=== PATIENT | female | born 1985 | race Caucasian/White ===

== ENCOUNTER 2016-11-14 18:05 | Emergency (ER) | payer OTHER ==
[2016-11-14 19:14] LABS: BASO % 0.4 % (0.0-1.0); EOS # 0.1 K/mm3 (0.0-0.50); EOS % 0.8 % (0.0-3.0); LARGE UNSTAINED CELL # 0.2 K/mm3 (0.0-0.4); LARGE UNSTAINED CELL % 1.2 % (0.0-4.0); LYMPH # 2.5 K/mm3 (1.5-4.5); LYMPH % 18.1 % (24.0-44.0); MEAN CORPUSCULAR HEMOGLOBIN 28.2 pg (27.0-33.0); MEAN CORPUSCULAR HGB CONC 33.5 g/dl (32.0-36.5); MEAN CORPUSCULAR VOLUME 84.2 fl (80.0-96.0); MONO # 0.4 K/mm3 (0.0-0.8); MONO % 3.2 % (0.0-5.0); NEUTROPHILS # 10.4 K/mm3 (1.8-7.7); NEUTROPHILS % 76.3 % (36.0-66.0); PLATELET COUNT, AUTOMATED 245 k/mm3 (150-450); RED CELL DISTRIBUTION WIDTH 12.8 % (11.5-14.5); WHITE BLOOD COUNT 13.6 K/mm3 (4.0-10.0)
[2016-11-14 19:36] LABS: ANION GAP 9 MEQ/L (8-16); BLOOD UREA NITROGEN 10 MG/DL (7-18); CALCIUM LEVEL 8.7 MG/DL (8.5-10.1); CARBON DIOXIDE LEVEL 27 MEQ/L (21-32); CHLORIDE LEVEL 104 MEQ/L (98-107); CREATININE FOR GFR 0.66 MG/DL (0.55-1.02); GLOMERULAR FILTRATION RATE > 60.0 (>60); GLUCOSE, FASTING 154 MG/DL (70-105); POTASSIUM SERUM 3.7 MEQ/L (3.5-5.1); SODIUM LEVEL 140 MEQ/L (136-145)
--- NOTE | 2016-11-14 20:17 | EDDOCDS ---
Nurse's Notes [facility] Name: Rosa Alicea Age: 30 yrs Sex: Female : 1985 Arrival Date: 11/14/2016 Time: 18:05 Bed 17 Private MD: Yaakov Hanna J Diagnosis: Acute upper respiratory infection, unspecified-viral Presentation: 11/14 18:15 Presenting complaint: Patient states: have had a couple of episodes of SOB in past [facility] couple of days, since this morning around ten has been constant. Have been getting over cold/flu symptoms so thought it was that but it is getting worse. Adult Sepsis Screening: The patient does not have new or worsening altered mentation. Patient's respiratory rate is less than 22. Systolic blood pressure is greater than 100. Patient has a qSOFA score of 0- Negative Sepsis Screen. Suicide/Homicide risk assessment- the patient denies having any suicidal and/or homicidal ideations and does not present with any other emotional, behavioral or mental health complaints. Status: Patient is not a service observer chief or dependent. Transition of care: patient was not received from another setting of care. 18:15 Acuity: IRON Level 3 [facility] 18:15 Method Of Arrival: Walkin/Carried/Asstd [facility] Triage Assessment: 18:20 General: Appears in no apparent distress, comfortable, Behavior is appropriate for age, [facility] cooperative. Pain: Denies pain. HIV screening NA for this visit Offered previously. Respiratory: Onset: The symptoms/episode began/occurred yesterday, Airway is patent Respiratory effort is even, labored, Respiratory pattern is regular, symmetrical, Breath sounds are clear bilaterally. Derm: Skin is pink, warm & dry. TEST RIDER: 18:20 LMP 10/21/2016 [facility] Historical: - Allergies: no known allergies; - Home Meds: 1. Vitamin Oral tab 1 tab once daily 2. Stool softener - PMHx: ADD; Depression; - PSHx: Right knee arthroscopy (2002); Oral surgery; - Social history: Smoking status: Patient states former smoker of tobacco. No barriers to communication noted. - Family history: Not pertinent. - : The pt / caregiver states he / she is not on anticoagulants. Home medication list is obtained from the patient. - Exposure Risk Screening:: None identified. Screenin:01 Screening information is obtained from the patient. Fall risk: No risks identified. ml6 Assistance ADL's: requires no assistance with activities of daily living. Abuse/DV Screen: The patient / caregiver reports he/she is: not in a situation that causes fear, pain or injury. Nutritional screening: No deficits noted. Advance Directives: Currently, there is no health care proxy. home support is adequate. Assessment: 19:01 General: Appears in no apparent distress, Behavior is appropriate for age, cooperative. ml6 Pain: Denies pain. Neurological: No deficits noted. Level of Consciousness is awake, alert, Oriented to person, place, time. Cardiovascular: Capillary refill < 3 seconds is brisk in bilateral fingers toes Heart tones S1 S2 present Edema is absent. Pulses are all present. Rhythm is regular Chest pain is denied. Respiratory: Airway is patent Respiratory effort is even, labored, Respiratory pattern is regular, symmetrical, Breath sounds are clear bilaterally. Reports shortness of breath at rest the patient has mild shortness of breath. 19:33 General: Appears in no apparent distress, Behavior is appropriate for age, cooperative. ko2 General:. Pain: Denies pain. Neurological: Level of Consciousness is awake, alert, Oriented to person, place, time. Cardiovascular: Heart tones S1 S2 present Rhythm is regular Chest pain is denied. Respiratory: Airway is patent Respiratory effort is even, labored, Respiratory pattern is regular, symmetrical, Breath sounds are clear bilaterally. Reports shortness of breath at rest. GI: Abdomen is non- distended Bowel sounds present X 4 quads. Abd is soft and non tender. Derm: Skin is normal. Musculoskeletal: Range of motion intact in all extremities. 20:14 General: Appears in no apparent distress, Behavior is appropriate for age, cooperative. ko2 Neurological: Level of Consciousness is awake, alert. Respiratory: Airway is patent Respiratory effort is even, Respiratory pattern is regular, symmetrical. Derm: Skin is normal. Vital Signs: 18:06 BP 139 / 70; Pulse 91; Resp 18 S; Temp 97.9(O); Pulse Ox 99% on R/A; Weight 63.05 kg gr2 (R); Height 5 ft. 5 in. (165.10 cm) (R); Pain 3/10; 18:52 BP 110 / 61 (auto/); ko2 18:52 Pulse 78 MON; Pulse Ox 98% ; ko2 19:22 BP 109 / 63 (auto/); ko2 19:22 Pulse 86 MON; Pulse Ox 97% ; ko2 20:15 BP 110 / 63; Pulse 84; Resp 18; Temp 97.1(T); Pulse Ox 97% ; Pain 0/10; ko2 18:06 Body Mass Index 23.13 (63.05 kg, 165.10 cm) gr2 Vitals: 18:06 Log In Time: November 14, 2016 at 18:06. gr2 ED Course: 18:06 Patient visited by Morena Zavala. gr2 18:06 Yaakov Hanna is Private Physician. gr2 18:06 Patient moved to Waiting gr2 18:07 Patient visited by Morena Zavala. gr2 18:07 Patient moved to Pre RCE gr2 18:17 Triage Initiated cjh 18:26 Patient moved to 17 rs6 18:51 Patient visited by Freya Dominguez PCA. marnie 18:51 EKG done. (by ED staff). Reviewed by Rich Reynoso MD. marnie 18:55 Vaughn Gloevr DO is Attending Physician. cs11 18:55 Patient visited by Vaughn Glover DO. cs11 18:58 Hattie Shea,RN is Primary Nurse. ko2 19:00 -Influenza A&B Rapid Antigen - Nose Sent. ml6 19:00 BMP Sent. ml6 19:00 CBC with Diff Sent. ml6 19:00 D-Dimer Quant Sent. ml6 19:01 Inserted peripheral IV: 18gauge IV in right antecubital area and blood collected. ml6 Patient tolerated the procedure well. No procedures done that require assistance. Labs drawn. (by ED staff). Sent per order to lab. 19:33 Patient visited by Hattie Shea,LUL. ko2 20:01 Yaakov Hanna is Referral Physician. cs11 20:15 The patient / caregiver is instructed regarding the plan of care and ED course. ko2 20:15 Discontinued lock intact, bleeding controlled, pressure dressing applied, No ko2 redness/swelling at site. Order Results: Lab Order: -Influenza A&B Rapid Antigen - Nose; SPEC'M 11/14/16 18:58 Test: INFLUENZA A RAPID SCR by ICA; Value: INFLUENZA A RESULTS NEGATIVE; Status: F Test: INFLUENZA A RAPID SCR by ICA; Value: Comments:; Status: F Test: INFLUENZA B RAPID SCR by ICA; Value: INFLUENZA B RESULTS NEGATIVE; Status: F Test Note: ; The Influenza test is a direct rapid immunoassay for the qualitative detection of Influenza viral antigen. Cell culture (Viral Culture) testing should be considered to confirm NEGATIVE results and to assist in detecting other viruses that can provide similar clinical symptoms. Please contact the lab within 24 hours ([phone]) if confirmatory testing is desired. Lab Order: BMP; SPEC'M 11/14/16 18:58 Test: GLUCOSE, FASTING; Value: 154; Range: 70-105; Abnormal: Above high normal; Units: MG/DL; Status: F Test: BLOOD UREA NITROGEN; Value: 10; Range: 7-18; Units: MG/DL; Status: F Test: CREATININE FOR GFR; Value: 0.66; Range: 0.55-1.02; Units: MG/DL; Status: F Test: GLOMERULAR FILTRATION RATE; Value: > 60.0; Range: >60; Status: F Test: SODIUM LEVEL; Value: 140; Range: 136-145; Units: MEQ/L; Status: F Test: POTASSIUM SERUM; Value: 3.7; Range: 3.5-5.1; Units: MEQ/L; Status: F Test: CHLORIDE LEVEL; Value: 104; Range: 98-107; Units: MEQ/L; Status: F Test: CARBON DIOXIDE LEVEL; Value: 27; Range: 21-32; Units: MEQ/L; Status: F Test: ANION GAP; Value: 9; Range: 8-16; Units: MEQ/L; Status: F Test: CALCIUM LEVEL; Value: 8.7; Range: 8.5-10.1; Units: MG/DL; Status: F Test Note: ; Units are mL/min/1.73 m2 Chronic Kidney Disease Staging per NKF: Stage I & II GFR >=60 Normal to Mildly Decreased Stage III GFR 30-59 Moderately Decreased Stage IV GFR 15-29 Severely Decreased Stage V GFR <15 Very Little GFR Left ESRD GFR <15 on GERIATRIC AIDE Lab Order: CBC with Diff; SPEC'M 11/14/16 18:58 Test: WHITE BLOOD COUNT; Value: 13.6; Range: 4.0-10.0; Abnormal: Above high normal; Units: K/mm3; Status: F Test: RED BLOOD COUNT; Value: 4.21; Range: 4.00-5.40; Units: M/mm3; Status: F Test: HEMOGLOBIN; Value: 11.9; Range: 12.0-16.0; Abnormal: Below low normal; Units: g/dl; Status: F Test: HEMATOCRIT; Value: 35.4; Range: 36.0-47.0; Abnormal: Below low normal; Units: %; Status: F Test: MEAN CORPUSCULAR VOLUME; Value: 84.2; Range: 80.0-96.0; Units: fl; Status: F Test: MEAN CORPUSCULAR HEMOGLOBIN; Value: 28.2; Range: 27.0-33.0; Units: pg; Status: F Test: MEAN CORPUSCULAR HGB CONC; Value: 33.5; Range: 32.0-36.5; Units: g/dl; Status: F Test: RED CELL DISTRIBUTION WIDTH; Value: 12.8; Range: 11.5-14.5; Units: %; Status: F Test: PLATELET COUNT, AUTOMATED; Value: 245; Range: 150-450; Units: k/mm3; Status: F Test: NEUTROPHILS %; Value: 76.3; Range: 36.0-66.0; Abnormal: Above high normal; Units: %; Status: F Test: LYMPH %; Value: 18.1; Range: 24.0-44.0; Abnormal: Below low normal; Units: %; Status: F Test: MONO %; Value: 3.2; Range: 0.0-5.0; Units: %; Status: F Test: EOS %; Value: 0.8; Range: 0.0-3.0; Units: %; Status: F Test: BASO %; Value: 0.4; Range: 0.0-1.0; Units: %; Status: F Test: LARGE UNSTAINED CELL %; Value: 1.2; Range: 0.0-4.0; Units: %; Status: F Test: NEUTROPHILS #; Value: 10.4; Range: 1.8-7.7; Abnormal: Above high normal; Units: K/mm3; Status: F Test: LYMPH #; Value: 2.5; Range: 1.5-4.5; Units: K/mm3; Status: F Test: MONO #; Value: 0.4; Range: 0.0-0.8; Units: K/mm3; Status: F Test: EOS #; Value: 0.1; Range: 0.0-0.50; Units: K/mm3; Status: F Test: BASO #; Value: 0.0; Range: 0.0-0.2; Units: K/mm3; Status: F Test: LARGE UNSTAINED CELL #; Value: 0.2; Range: 0.0-0.4; Units: K/mm3; Status: F Lab Order: D-Dimer Quant; SPEC'M 11/14/16 18:58 Test: D-DIMER QUANT; Value: < 270.0; Range: <500; Units: ng/ml; Status: F Outcome: 20:02 Discharge ordered by Provider. cs11 20:16 Discharge Assessment: Patient awake, alert and oriented x 3. No cognitive and/or ko2 functional deficits noted. Patient verbalized understanding of disposition instructions. patient administered narcotics - no. The following High Risk Discharge criteria are identified: None. Discharged to home ambulatory, with significant other. Condition: stable. Discharge instructions given to patient, Instructed on discharge instructions, follow up and referral plans. Demonstrated understanding of instructions, Pt was receptive of discharge instructions/ teaching. No special radiology studies were completed. Property sent home with patient. 20:16 Patient left the ED. ko2 Signatures: Edgar Lara, RN RN ml6 Freya Dmoinguez, CENSUS ENUMERATOR CENSUS ENUMERATOR marnie Radha Iniguez,RN RN tyesha Vaughn Glover DO DO cs11 Morena Zavala 2 Hattie Shea RN RN ko2 Rajani Clark, CENSUS ENUMERATOR CENSUS ENUMERATOR rs6 MTDD
--- NOTE | 2016-11-14 20:17 | EDDOCDS ---
Physician Documentation [facility] Name: Rosa Alicea Age: 30 yrs Sex: Female : 1985 Arrival Date: 11/14/2016 Time: 18:05 Bed 17 Private MD: Yaakov Hanna J Disposition: 11/14/16 20:02 Discharged to Home/Self Care. Impression: Acute upper respiratory infection, unspecified - viral. - Condition is Stable. - Medication Reconciliation, Local Pharmacy Hours form. - Follow up: Yaakov Hanna; When: Call to arrange an appointment; Reason: Recheck today's complaints. - Problem is an ongoing problem. - Symptoms are unchanged. Historical: - Allergies: no known allergies; - Home Meds: 1. Vitamin Oral tab 1 tab once daily 2. Stool softener - PMHx: ADD; Depression; - PSHx: Right knee arthroscopy (2002); Oral surgery; - Social history: Smoking status: Patient states former smoker of tobacco. No barriers to communication noted. - Family history: Not pertinent. - : The pt / caregiver states he / she is not on anticoagulants. Home medication list is obtained from the patient. - Exposure Risk Screening:: None identified. CHICKEN CATCHER: 11/14 18:20 LMP 10/21/[address] [facility] Vital Signs: 18:06 BP 139 / 70; Pulse 91; Resp 18 S; Temp 97.9(O); Pulse Ox 99% on R/A; Weight 63.05 kg / gr2 139 lbs (R); Height 5 ft. 5 in. (165.10 cm) (R); Pain 3/10; 18:52 BP 110 / 61 (auto/); ko2 18:52 Pulse 78 MON; Pulse Ox 98% ; ko2 19:22 BP 109 / 63 (auto/); ko2 19:22 Pulse 86 MON; Pulse Ox 97% ; ko2 20:15 BP 110 / 63; Pulse 84; Resp 18; Temp 97.1(T); Pulse Ox 97% ; Pain 0/10; ko2 18:06 Body Mass Index 23.13 (63.05 kg, 165.10 cm) gr2 MDM: 18:37 -Blood Culture (Adults Only), peripheral from different site, or from device/port/PICC ml6 etc. if present ordered. 18:37 If pre-RCE wait time >60 minutes, inform reg. staff to do full reg ordered. ml6 18:37 Undress patient appropriately for examination ordered. ml6 18:38 BMP Ordered. EDMS 18:38 CBC with Diff Ordered. EDMS 18:38 D-Dimer Quant Ordered. EDMS 18:38 -Influenza A&B Rapid Antigen - Nose Ordered. EDMS 18:38 ECG WITH READING ER PHYS+CARDIAG ordered. EDMS 18:39 -Blood Culture (Adults Only), peripheral from different site, or from device/port/PICC ar3 etc. if present complete. 19:47 BMP Reviewed. cs11 19:47 CBC with Diff Reviewed. cs11 19:47 -Influenza A&B Rapid Antigen - Nose Reviewed. cs11 19:47 D-Dimer Quant Reviewed. cs11 Signatures: Dispatcher [employer] EDMS Edgar Lara, RN RN ml6 Shonna Urbano, WINDOW AIR CONDITIONER INSTALLER WINDOW AIR CONDITIONER INSTALLER ar3 Radha Iniguez RN RN [facility] Vaughn Glover, DO DO cs11 Hattie Shea,RN RN ko2 The chart was reviewed and I authenticate all verbal orders and agree with the evaluation and treatment provided.Corrections: (The following items were deleted from the chart) 19:02 18:38 Chest, 2 view (PA\E\Lat)+XR ordered. EDMS EDMS 19:03 18:38 -BLOOD CULTURES+LEI ordered. EDMS EDMS 19:03 18:42 BLOOD CULTURES ordered. EDMS EDMS 20:06 19:48 Chest, 2 view (PA\E\Lat)+XR ordered. EDMS EDMS MTDD
--- NOTE | 2016-11-15 13:10 | ECGEPIP ---
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
--- NOTE | 2016-11-16 21:17 | EDDOCDS ---
Nurse's Notes [facility] Name: Rosa Hammond Age: 30 yrs Sex: Female : 1985 Arrival Date: 11/14/2016 Time: 18:05 Bed 17 Private MD: Yaakov Hanna J Diagnosis: Acute upper respiratory infection, unspecified-viral Presentation: 11/14 18:15 Presenting complaint: Patient states: have had a couple of episodes of SOB in past [facility] couple of days, since this morning around ten has been constant. Have been getting over cold/flu symptoms so thought it was that but it is getting worse. Adult Sepsis Screening: The patient does not have new or worsening altered mentation. Patient's respiratory rate is less than 22. Systolic blood pressure is greater than 100. Patient has a qSOFA score of 0- Negative Sepsis Screen. Suicide/Homicide risk assessment- the patient denies having any suicidal and/or homicidal ideations and does not present with any other emotional, behavioral or mental health complaints. Status: Patient is not a service promoter salesperson or dependent. Transition of care: patient was not received from another setting of care. 18:15 Acuity: IRON Level 3 [facility] 18:15 Method Of Arrival: Walkin/Carried/Asstd [facility] Triage Assessment: 18:20 General: Appears in no apparent distress, comfortable, Behavior is appropriate for age, [facility] cooperative. Pain: Denies pain. HIV screening NA for this visit Offered previously. Respiratory: Onset: The symptoms/episode began/occurred yesterday, Airway is patent Respiratory effort is even, labored, Respiratory pattern is regular, symmetrical, Breath sounds are clear bilaterally. Derm: Skin is pink, warm & dry. 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 Vitamin Oral tab 1 tab once daily 2. Stool softener - PMHx: ADD; Depression; - PSHx: Right knee arthroscopy (2002); Oral surgery; - Social history: Smoking status: Patient states former smoker of tobacco. No barriers to communication noted. - Family history: Not pertinent. - : The pt / caregiver states he / she is not on anticoagulants. Home medication list is obtained from the patient. - Exposure Risk Screening:: None identified. Screenin:01 Screening information is obtained from the patient. Fall risk: No risks identified. ml6 Assistance ADL's: requires no assistance with activities of daily living. Abuse/DV Screen: The patient / caregiver reports he/she is: not in a situation that causes fear, pain or injury. Nutritional screening: No deficits noted. Advance Directives: Currently, there is no health care proxy. home support is adequate. Assessment: 19:01 General: Appears in no apparent distress, Behavior is appropriate for age, cooperative. ml6 Pain: Denies pain. Neurological: No deficits noted. Level of Consciousness is awake, alert, Oriented to person, place, time. Cardiovascular: Capillary refill < 3 seconds is brisk in bilateral fingers toes Heart tones S1 S2 present Edema is absent. Pulses are all present. Rhythm is regular Chest pain is denied. Respiratory: Airway is patent Respiratory effort is even, labored, Respiratory pattern is regular, symmetrical, Breath sounds are clear bilaterally. Reports shortness of breath at rest the patient has mild shortness of breath. 19:33 General: Appears in no apparent distress, Behavior is appropriate for age, cooperative. ko2 General:. Pain: Denies pain. Neurological: Level of Consciousness is awake, alert, Oriented to person, place, time. Cardiovascular: Heart tones S1 S2 present Rhythm is regular Chest pain is denied. Respiratory: Airway is patent Respiratory effort is even, labored, Respiratory pattern is regular, symmetrical, Breath sounds are clear bilaterally. Reports shortness of breath at rest. GI: Abdomen is non- distended Bowel sounds present X 4 quads. Abd is soft and non tender. Derm: Skin is normal. Musculoskeletal: Range of motion intact in all extremities. 20:14 General: Appears in no apparent distress, Behavior is appropriate for age, cooperative. ko2 Neurological: Level of Consciousness is awake, alert. Respiratory: Airway is patent Respiratory effort is even, Respiratory pattern is regular, symmetrical. Derm: Skin is normal. Vital Signs: 18:06 BP 139 / 70; Pulse 91; Resp 18 S; Temp 97.9(O); Pulse Ox 99% on R/A; Weight 63.05 kg gr2 (R); Height 5 ft. 5 in. (165.10 cm) (R); Pain 3/10; 18:52 BP 110 / 61 (auto/); ko2 18:52 Pulse 78 MON; Pulse Ox 98% ; ko2 19:22 BP 109 / 63 (auto/); ko2 19:22 Pulse 86 MON; Pulse Ox 97% ; ko2 20:15 BP 110 / 63; Pulse 84; Resp 18; Temp 97.1(T); Pulse Ox 97% ; Pain 0/10; ko2 18:06 Body Mass Index 23.13 (63.05 kg, 165.10 cm) gr2 Vitals: 18:06 Log In Time: November 14, 2016 at 18:06. gr2 ED Course: 18:06 Patient visited by Morena Zavala. gr2 18:06 Yaakov Hanna is Private Physician. gr2 18:06 Patient moved to Waiting gr2 18:07 Patient visited by Morena Zavala. gr2 18:07 Patient moved to Pre RCE gr2 18:17 Triage Initiated cjh 18:26 Patient moved to 17 rs6 18:51 Patient visited by Freya Dominguez PCA. marnie 18:51 EKG done. (by ED staff). Reviewed by Rich Reynoso MD. marnie 18:55 Vaughn Glover DO is Attending Physician. cs11 18:55 Patient visited by Vaughn Glover DO. cs11 18:58 Hattie Shea,RN is Primary Nurse. ko2 19:00 -Influenza A&B Rapid Antigen - Nose Sent. ml6 19:00 BMP Sent. ml6 19:00 CBC with Diff Sent. ml6 19:00 D-Dimer Quant Sent. ml6 19:01 Inserted peripheral IV: 18gauge IV in right antecubital area and blood collected. ml6 Patient tolerated the procedure well. No procedures done that require assistance. Labs drawn. (by ED staff). Sent per order to lab. 19:33 Patient visited by Hattie Shea,RN. ko2 20:01 Yaakov Hanna is Referral Physician. cs11 20:15 The patient / caregiver is instructed regarding the plan of care and ED course. ko2 20:15 Discontinued lock intact, bleeding controlled, pressure dressing applied, No ko2 redness/swelling at site. 21:17 [facility] [place] Payment Agreement was scanned into [employer] and attached to record. ks16 21:18 [facility] Payment Agreement was scanned into [employer] and attached to record. ks16 11/15 13:42 EKG-ADULT Returned. EDMS 16:16 T-Sheet-- Draft Copy was scanned into [employer] and attached to record. r 11/16 10:11 ECG/EKG was scanned into [employer] and attached to record. gb Order Results: Lab Order: -Influenza A&B Rapid Antigen - Nose; SPEC'M 11/14/16 18:58 Test: INFLUENZA A RAPID SCR by ICA; Value: INFLUENZA A RESULTS NEGATIVE; Status: F Test: INFLUENZA A RAPID SCR by ICA; Value: Comments:; Status: F Test: INFLUENZA B RAPID SCR by ICA; Value: INFLUENZA B RESULTS NEGATIVE; Status: F Test Note: ; The Influenza test is a direct rapid immunoassay for the qualitative detection of Influenza viral antigen. Cell culture (Viral Culture) testing should be considered to confirm NEGATIVE results and to assist in detecting other viruses that can provide similar clinical symptoms. Please contact the lab within 24 hours ([phone]) if confirmatory testing is desired. Lab Order: BMP; SPEC'M 11/14/16 18:58 Test: GLUCOSE, FASTING; Value: 154; Range: 70-105; Abnormal: Above high normal; Units: MG/DL; Status: F Test: BLOOD UREA NITROGEN; Value: 10; Range: 7-18; Units: MG/DL; Status: F Test: CREATININE FOR GFR; Value: 0.66; Range: 0.55-1.02; Units: MG/DL; Status: F Test: GLOMERULAR FILTRATION RATE; Value: > 60.0; Range: >60; Status: F Test: SODIUM LEVEL; Value: 140; Range: 136-145; Units: MEQ/L; Status: F Test: POTASSIUM SERUM; Value: 3.7; Range: 3.5-5.1; Units: MEQ/L; Status: F Test: CHLORIDE LEVEL; Value: 104; Range: 98-107; Units: MEQ/L; Status: F Test: CARBON DIOXIDE LEVEL; Value: 27; Range: 21-32; Units: MEQ/L; Status: F Test: ANION GAP; Value: 9; Range: 8-16; Units: MEQ/L; Status: F Test: CALCIUM LEVEL; Value: 8.7; Range: 8.5-10.1; Units: MG/DL; Status: F Test Note: ; Units are mL/min/1.73 m2 Chronic Kidney Disease Staging per NKF: Stage I & II GFR >=60 Normal to Mildly Decreased Stage III GFR 30-59 Moderately Decreased Stage IV GFR 15-29 Severely Decreased Stage V GFR <15 Very Little GFR Left ESRD GFR <15 on EMBROIDERY DESIGNER Lab Order: CBC with Diff; SPEC'M 11/14/16 18:58 Test: WHITE BLOOD COUNT; Value: 13.6; Range: 4.0-10.0; Abnormal: Above high normal; Units: K/mm3; Status: F Test: RED BLOOD COUNT; Value: 4.21; Range: 4.00-5.40; Units: M/mm3; Status: F Test: HEMOGLOBIN; Value: 11.9; Range: 12.0-16.0; Abnormal: Below low normal; Units: g/dl; Status: F Test: HEMATOCRIT; Value: 35.4; Range: 36.0-47.0; Abnormal: Below low normal; Units: %; Status: F Test: MEAN CORPUSCULAR VOLUME; Value: 84.2; Range: 80.0-96.0; Units: fl; Status: F Test: MEAN CORPUSCULAR HEMOGLOBIN; Value: 28.2; Range: 27.0-33.0; Units: pg; Status: F Test: MEAN CORPUSCULAR HGB CONC; Value: 33.5; Range: 32.0-36.5; Units: g/dl; Status: F Test: RED CELL DISTRIBUTION WIDTH; Value: 12.8; Range: 11.5-14.5; Units: %; Status: F Test: PLATELET COUNT, AUTOMATED; Value: 245; Range: 150-450; Units: k/mm3; Status: F Test: NEUTROPHILS %; Value: 76.3; Range: 36.0-66.0; Abnormal: Above high normal; Units: %; Status: F Test: LYMPH %; Value: 18.1; Range: 24.0-44.0; Abnormal: Below low normal; Units: %; Status: F Test: MONO %; Value: 3.2; Range: 0.0-5.0; Units: %; Status: F Test: EOS %; Value: 0.8; Range: 0.0-3.0; Units: %; Status: F Test: BASO %; Value: 0.4; Range: 0.0-1.0; Units: %; Status: F Test: LARGE UNSTAINED CELL %; Value: 1.2; Range: 0.0-4.0; Units: %; Status: F Test: NEUTROPHILS #; Value: 10.4; Range: 1.8-7.7; Abnormal: Above high normal; Units: K/mm3; Status: F Test: LYMPH #; Value: 2.5; Range: 1.5-4.5; Units: K/mm3; Status: F Test: MONO #; Value: 0.4; Range: 0.0-0.8; Units: K/mm3; Status: F Test: EOS #; Value: 0.1; Range: 0.0-0.50; Units: K/mm3; Status: F Test: BASO #; Value: 0.0; Range: 0.0-0.2; Units: K/mm3; Status: F Test: LARGE UNSTAINED CELL #; Value: 0.2; Range: 0.0-0.4; Units: K/mm3; Status: F Lab Order: D-Dimer Quant; SPEC'M 11/14/16 18:58 Test: D-DIMER QUANT; Value: < 270.0; Range: <500; Units: ng/ml; Status: F Radiology Order: EKG-ADULT Test: EKG-ADULT REASON FOR EXAMINATION: Shortness of Breath; Stationary ECG Study; [facility] - ED; ; Test Date: 2016-11-14; Pat Name: ROSA HAMMOND Department:; Room: -; Gender: F Director Critical Care: deric; : 1985 Requested By: DAVID Parada; Order Number: [id number] Reading MD: Zuly Nicole; Measurements; Intervals [place]; Rate: 79 P: 64; MS: 146 QRS: 72; QRSD: 98 T: 39; QT: 371; QTc: 427; Interpretive Statements; SINUS RHYTHM; NSTTW ABNORMALITY; INCREASED RATE 10/09/15; Electronically Signed On 11-15-2016 13:10:17 EST by Zuly Nicole; Outcome: 11/14 20:02 Discharge ordered by Provider. cs11 20:16 Discharge Assessment: Patient awake, alert and oriented x 3. No cognitive and/or ko2 functional deficits noted. Patient verbalized understanding of disposition instructions. patient administered narcotics - no. The following High Risk Discharge criteria are identified: None. Discharged to home ambulatory, with significant other. Condition: stable. Discharge instructions given to patient, Instructed on discharge instructions, follow up and referral plans. Demonstrated understanding of instructions, Pt was receptive of discharge instructions/ teaching. No special radiology studies were completed. Property sent home with patient. 20:16 Patient left the ED. ko2 Signatures: Dispatcher [employer] EDMS Tamela Pineda, Reg Reg gb Edgar Lara, RN RN ml6 Freya Dominguez, MAT MAKER MAT MAKER marnie Radha Iniguez,RN RN [facility] Vaughn Glover DO DO cs11 Morena Zavala gr2 Hattie Shea RN RN ko2 Rajani Clark, MAT MAKER MAT MAKER rs6 Joseline Steward, Reg Reg ks16 Oneida Mora Chart Complete MTDD
--- NOTE | 2016-11-16 21:17 | EDDOCDS ---
Physician Documentation [facility] Name: Rosa Alicea Age: 30 yrs Sex: Female : 1985 Arrival Date: 11/14/2016 Time: 18:05 Bed 17 Private MD: Yaakov Hanna J Disposition: 11/14/16 20:02 Discharged to Home/Self Care. Impression: Acute upper respiratory infection, unspecified - viral. - Condition is Stable. - Medication Reconciliation, Local Pharmacy Hours form. - Follow up: Yaakov Hanna; When: Call to arrange an appointment; Reason: Recheck today's complaints. - Problem is an ongoing problem. - Symptoms are unchanged. Historical: - Allergies: no known allergies; - Home Meds: 1. Vitamin Oral tab 1 tab once daily 2. Stool softener - PMHx: ADD; Depression; - PSHx: Right knee arthroscopy (2002); Oral surgery; - Social history: Smoking status: Patient states former smoker of tobacco. No barriers to communication noted. - Family history: Not pertinent. - : The pt / caregiver states he / she is not on anticoagulants. Home medication list is obtained from the patient. - Exposure Risk Screening:: None identified. 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 5 in. (165.10 cm) (R); Pain 3/10; 18:52 BP 110 / 61 (auto/); ko2 18:52 Pulse 78 MON; Pulse Ox 98% ; ko2 19:22 BP 109 / 63 (auto/); ko2 19:22 Pulse 86 MON; Pulse Ox 97% ; ko2 20:15 BP 110 / 63; Pulse 84; Resp 18; Temp 97.1(T); Pulse Ox 97% ; Pain 0/10; ko2 18:06 Body Mass Index 23.13 (63.05 kg, 165.10 cm) gr2 MDM: 18:37 -Blood Culture (Adults Only), peripheral from different site, or from device/port/PICC ml6 etc. if present ordered. 18:37 If pre-RCE wait time >60 minutes, inform reg. staff to do full reg ordered. ml6 18:37 Undress patient appropriately for examination ordered. ml6 18:38 BMP Ordered. EDMS 18:38 CBC with Diff Ordered. EDMS 18:38 D-Dimer Quant Ordered. EDMS 18:38 -Influenza A&B Rapid Antigen - Nose Ordered. EDMS 18:38 ECG WITH READING ER PHYS+CARDIAG ordered. EDMS 18:39 -Blood Culture (Adults Only), peripheral from different site, or from device/port/PICC ar3 etc. if present complete. 19:47 BMP Reviewed. cs11 19:47 CBC with Diff Reviewed. cs11 19:47 -Influenza A&B Rapid Antigen - Nose Reviewed. cs11 19:47 D-Dimer Quant Reviewed. cs11 21:15 Financial registration complete. ks16 21:16 Undo -Financial registration. ks16 21:16 Financial registration complete. ks16 21:17 [facility] Payment Agreement was scanned into [employer] and attached to record. ks16 21:18 [facility] Payment Agreement was scanned into [employer] and attached to record. ks16 11/15 16:16 T-Sheet-- Draft Copy was scanned into [employer] and attached to record. r 11/16 10:11 ECG/EKG was scanned into [employer] and attached to record. gb Signatures: Dispatcher [employer] EDOR Tamela Pineda, Reg Reg gb Edgar Lara, RN RN ml6 Shonna Urbano, EXPRESS MANAGER EXPRESS MANAGER ar3 Radha IniguezRN RN Vaughn Lozada, DO DO cs11 Hattie SheaRN RN ko2 Joseline Steward, Reg Reg ks16 Oneida Mora klr The chart was reviewed and I authenticate all verbal orders and agree with the evaluation and treatment provided.Corrections: (The following items were deleted from the chart) 11/14 19:02 18:38 Chest, 2 view (PA\E\Lat)+XR ordered. EDMS EDMS 19:03 18:38 -BLOOD CULTURES+LEI ordered. EDMS EDMS 19:03 18:42 BLOOD CULTURES ordered. EDMS EDMS 20:06 19:48 Chest, 2 view (PA\E\Lat)+XR ordered. EDMS EDMS Attachments: 21:18 [facility] Payment Agreement ks16 11/15 16:16 T-Sheet-- Draft Copy r 11/16 10:11 ECG/EKG gb Chart Complete MTDD
--- NOTE | 2016-11-16 21:17 | EDDOCDS ---
Physician Documentation [facility] Name: Rosa Alicea Age: 30 yrs Sex: Female : 1985 Arrival Date: 11/14/2016 Time: 18:05 Bed 17 Private MD: Yaakov Hanna J Disposition: 11/14/16 20:02 Discharged to Home/Self Care. Impression: Acute upper respiratory infection, unspecified - viral. - Condition is Stable. - Medication Reconciliation, Local Pharmacy Hours form. - Follow up: Yaakov Hanna; When: Call to arrange an appointment; Reason: Recheck today's complaints. - Problem is an ongoing problem. - Symptoms are unchanged. Historical: - Allergies: no known allergies; - Home Meds: 1. Vitamin Oral tab 1 tab once daily 2. Stool softener - PMHx: ADD; Depression; - PSHx: Right knee arthroscopy (2002); Oral surgery; - Social history: Smoking status: Patient states former smoker of tobacco. No barriers to communication noted. - Family history: Not pertinent. - : The pt / caregiver states he / she is not on anticoagulants. Home medication list is obtained from the patient. - Exposure Risk Screening:: None identified. SIGNAL HELPER: 11/14 18:20 LMP 10/21/2016 [facility] Vital Signs: 18:06 BP 139 / 70; Pulse 91; Resp 18 S; Temp 97.9(O); Pulse Ox 99% on R/A; Weight 63.05 kg / gr2 139 lbs (R); Height 5 ft. 5 in. (165.10 cm) (R); Pain 3/10; 18:52 BP 110 / 61 (auto/); ko2 18:52 Pulse 78 MON; Pulse Ox 98% ; ko2 19:22 BP 109 / 63 (auto/); ko2 19:22 Pulse 86 MON; Pulse Ox 97% ; ko2 20:15 BP 110 / 63; Pulse 84; Resp 18; Temp 97.1(T); Pulse Ox 97% ; Pain 0/10; ko2 18:06 Body Mass Index 23.13 (63.05 kg, 165.10 cm) gr2 MDM: 18:37 -Blood Culture (Adults Only), peripheral from different site, or from device/port/PICC ml6 etc. if present ordered. 18:37 If pre-RCE wait time >60 minutes, inform reg. staff to do full reg ordered. ml6 18:37 Undress patient appropriately for examination ordered. ml6 18:38 BMP Ordered. EDMS 18:38 CBC with Diff Ordered. EDMS 18:38 D-Dimer Quant Ordered. EDMS 18:38 -Influenza A&B Rapid Antigen - Nose Ordered. EDMS 18:38 ECG WITH READING ER PHYS+CARDIAG ordered. EDMS 18:39 -Blood Culture (Adults Only), peripheral from different site, or from device/port/PICC ar3 etc. if present complete. 19:47 BMP Reviewed. cs11 19:47 CBC with Diff Reviewed. cs11 19:47 -Influenza A&B Rapid Antigen - Nose Reviewed. cs11 19:47 D-Dimer Quant Reviewed. cs11 21:15 Financial registration complete. ks16 21:16 Undo -Financial registration. ks16 21:16 Financial registration complete. ks16 21:17 [facility] Payment Agreement was scanned into [employer] and attached to record. ks16 21:18 [facility] Payment Agreement was scanned into [employer] and attached to record. ks16 11/15 16:16 T-Sheet-- Draft Copy was scanned into [employer] and attached to record. r 11/16 10:11 ECG/EKG was scanned into [employer] and attached to record. gb Signatures: Dispatcher [employer] EDNE Tamela Pineda, Reg Reg gb Edgar Lara, RN RN ml6 Shonna Urbano, [employer] SUPERVISOR [employer] SUPERVISOR ar3 Radha IniguezRN RN Vaughn Lozada, DO DO cs11 Hattie hSeaRN RN ko2 Joseline Steward, Reg Reg ks16 Oneida Mora klr The chart was reviewed and I authenticate all verbal orders and agree with the evaluation and treatment provided.Corrections: (The following items were deleted from the chart) 11/14 19:02 18:38 Chest, 2 view (PA\E\Lat)+XR ordered. EDMS EDMS 19:03 18:38 -BLOOD CULTURES+LEI ordered. EDMS EDMS 19:03 18:42 BLOOD CULTURES ordered. EDMS EDMS 20:06 19:48 Chest, 2 view (PA\E\Lat)+XR ordered. EDMS EDMS Attachments: 21:18 [facility] Payment Agreement ks16 11/15 16:16 T-Sheet-- Draft Copy r 11/16 10:11 ECG/EKG gb Chart Complete MTDD
== END 2016-11-14 20:16 | disposition home or self-care (01) ==
LOC: M ED 18:05
DX: J06.9 Acute upper respiratory infection, unspecified (principal); F90.9 Attention-deficit hyperactivity disorder, unspecified type; F32.9 Major depressive disorder, single episode, unspecified; Z87.891 Personal history of nicotine dependence

== ENCOUNTER → 2016-11-14 | Outpatient (CLI) | payer OTHER ==
--- NOTE | 2016-11-14 16:52 | REP ---
Chest x-ray: Two views. History: Shortness of breath. . Comparison study: No comparison . Findings: The lungs are well inflated and free of infiltrate. The pleural angles are sharp. The heart size is normal. Pulmonary vasculature is not increased. No significant bony abnormality is seen. Impression: Negative chest x-ray. Signed by Pankaj Campoverde MD 11/14/2016 04:44 P
== END ==
LOC: M LRY 16:00
PROVIDERS: ATTEND Physician Assistant
DX: R06.02 Shortness of breath (principal)

== ENCOUNTER 2017-05-20 08:00 | Outpatient (RCR) | payer OTHER | END 2017-05-24 | LOC: M PT 08:00 | PROVIDERS: ATTEND Orthopaedic Surgery | DX: Z51.89 Encounter for other specified aftercare (principal); Z98.890 Other specified postprocedural states ==

== ENCOUNTER → 2017-06-24 | Outpatient (RCR) | payer OTHER | LOC: M PT 05-25 07:56 | PROVIDERS: ATTEND Orthopaedic Surgery | DX: Z51.89 Encounter for other specified aftercare (principal); Z98.890 Other specified postprocedural states ==

== ENCOUNTER 2017-07-20 07:00 | Outpatient (RCR) | payer OTHER | END 2017-07-24 | disposition home or self-care (01) | LOC: M PT 07:00 | PROVIDERS: ATTEND Orthopaedic Surgery | DX: Z51.89 Encounter for other specified aftercare (principal); Z98.890 Other specified postprocedural states ==

== ENCOUNTER → 2017-11-10 | Outpatient (CLI) | payer MEDICAID | LOC: M RAD 07:32 | DX: Z36.9 Encounter for antenatal screening, unspecified (principal); Z3A.12 12 weeks gestation of pregnancy | CPT/HCPCS: 76801 ==

== ENCOUNTER → 2018-01-04 | Outpatient (CLI) | payer OTHER | LOC: M RAD 16:53 | DX: Z36.89 Encounter for other specified antenatal screening (principal); Z3A.20 20 weeks gestation of pregnancy | CPT/HCPCS: 76811 ==

== ENCOUNTER → 2018-03-07 | Outpatient (CLI) | payer OTHER ==
[2018-03-07 07:52] LABS: GLUCOSE, FASTING 85 MG/DL (LESS THAN 95)
[2018-03-07 09:08] LABS: 1 HR GLUCOSE 158 MG/DL (LESS THAN 180)
[2018-03-07 09:55] LABS: 2 HR GLUCOSE 120 MG/DL (LESS THAN 155)
[2018-03-07 11:00] LABS: 3 HR GLUCOSE 76 MG/DL (LESS THAN 140)
== END ==
LOC: M LAB 07:08
DX: O99.810 Abnormal glucose complicating pregnancy (principal)
CPT/HCPCS: 82951

== ENCOUNTER → 2019-07-20 | Outpatient (REF) | payer OTHER ==
[2019-07-20 20:44] LABS: ALBUMIN 3.9 GM/DL (3.2-5.2); ALT/SGPT 15 U/L (12-78); BILIRUBIN,DIRECT < 0.1 MG/DL (0.0-0.2); BILIRUBIN,TOTAL 0.2 MG/DL (0.2-1.0); TOTAL PROTEIN 7.5 GM/DL (6.4-8.2)
== END ==
LOC: M SFHCLERA 15:12
PROVIDERS: ATTEND Family Medicine
DX: B35.1 Tinea unguium (principal)

== ENCOUNTER → 2019-08-09 | Outpatient (REF) | payer OTHER | LOC: M SFHCLERA 11:39 | PROVIDERS: ATTEND Family Medicine | DX: L60.8 Other nail disorders (principal) ==

== ENCOUNTER → 2019-09-25 | Outpatient (REF) | payer OTHER ==
[2019-09-25 11:35] LABS: BASO % 0.5 % (0.0-1.0); EOS # 0.1 10^3/uL (0.0-0.5); EOS % 1.3 % (0.0-3.0); HEMATOCRIT 36.5 % (36.0-47.0); HEMOGLOBIN 11.7 g/dl (12.0-15.5); LYMPH # 2.4 10^3/uL (1.5-5.0); LYMPH % 37.9 % (24.0-44.0); MEAN CORPUSCULAR HEMOGLOBIN 28.9 pg (27.0-33.0); MEAN CORPUSCULAR HGB CONC 32.1 g/dl (32.0-36.5); MEAN CORPUSCULAR VOLUME 90.1 fl (80.0-96.0); MONO # 0.5 10^3/uL (0.0-0.8); MONO % 7.1 % (0.0-5.0); NEUTROPHILS # 3.3 10^3/uL (1.5-8.5); NEUTROPHILS % 52.9 % (36.0-66.0); PLATELET COUNT, AUTOMATED 206 10^3/uL (150-450); RED BLOOD COUNT 4.05 10^6/uL (4.00-5.40); WHITE BLOOD COUNT 6.3 10^3/uL (4.0-10.0)
[2019-09-25 11:49] LABS: ALBUMIN 3.4 GM/DL (3.2-5.2); ALT/SGPT 16 U/L (12-78); BILIRUBIN,DIRECT < 0.1 MG/DL (0.0-0.2); BILIRUBIN,TOTAL 0.2 MG/DL (0.2-1.0); BLOOD UREA NITROGEN 9 MG/DL (7-18); CALCIUM LEVEL 8.9 MG/DL (8.5-10.1); CARBON DIOXIDE LEVEL 26 MEQ/L (21-32); CHLORIDE LEVEL 107 MEQ/L (98-107); CREATININE FOR GFR 0.67 MG/DL (0.55-1.30); GLOMERULAR FILTRATION RATE > 60.0 (>60); GLUCOSE, FASTING 76 MG/DL (70-100); POTASSIUM SERUM 4.6 MEQ/L (3.5-5.1); SODIUM LEVEL 142 MEQ/L (136-145); TOTAL PROTEIN 7.3 GM/DL (6.4-8.2)
== END ==
LOC: M SFHCLERA 08:19
PROVIDERS: ATTEND Family Medicine
DX: F41.9 Anxiety disorder, unspecified (principal); B35.1 Tinea unguium

== ENCOUNTER → 2019-11-27 | Outpatient (REF) | payer OTHER | LOC: M SFHCLERA 07:52 | PROVIDERS: ATTEND Family Medicine | DX: Z53.9 Procedure and treatment not carried out, unspecified reason (principal) ==

== ENCOUNTER → 2019-12-08 | Outpatient (REF) | payer OTHER ==
[2019-12-08 12:33] LABS: AMPHETAMINES URINE REFLEX NEGATIVE (NEGATIVE); BARBITURATES URINE REFLEX NEGATIVE (NEGATIVE); BENZODIAZEPINES URINE REFLEX NEGATIVE (NEGATIVE); CANNABINOIDS URINE REFLEX NEGATIVE (NEGATIVE); COCAINE METABOLITE URINE REFLE NEGATIVE (NEGATIVE); METHADONE URINE REFLEX NEGATIVE (NEGATIVE); OPIATES URINE REFLEX NEGATIVE (NEGATIVE); PHENCYCLIDINE URINE REFLEX NEGATIVE (NEGATIVE)
== END ==
LOC: M SFHCLERA 07:19
PROVIDERS: ATTEND Family Medicine
DX: F98.8 Other specified behavioral and emotional disorders with onset usually occurring in childhood and adolescence (principal)

== ENCOUNTER → 2020-02-08 | Outpatient (CLI) | payer OTHER | LOC: M LABSMTC 11:21 | PROVIDERS: ATTEND Family Medicine | DX: Z11.59 Encounter for screening for other viral diseases (principal); Z20.828 Contact with and (suspected) exposure to other viral communicable diseases ==

== ENCOUNTER → 2021-10-31 | Outpatient (CLI) | payer OTHER ==
[2021-10-31 08:10] LABS: ALBUMIN 3.9 GM/DL (3.2-5.2); ALT/SGPT 17 U/L (12-78); BILIRUBIN,TOTAL 0.4 MG/DL (0.2-1.0); BLOOD UREA NITROGEN 10 MG/DL (7-18); CALCIUM LEVEL 8.9 MG/DL (8.5-10.1); CARBON DIOXIDE LEVEL 27 MEQ/L (21-32); CHLORIDE LEVEL 106 MEQ/L (98-107); CHOLESTEROL LEVEL 185 MG/DL (<200); CHOLESTEROL RISK RATIO 2.434 (<5); CREATININE FOR GFR 0.66 MG/DL (0.55-1.30); GLOMERULAR FILTRATION RATE > 60.0 (>60); GLUCOSE, FASTING 87 MG/DL (70-100); HDL CHOLESTEROL 76 MG/DL (>40); LDL CHOLESTEROL 92 MG/DL (<100); NON-HDL-C 109 MG/DL; POTASSIUM SERUM 4.1 MEQ/L (3.5-5.1); SODIUM LEVEL 138 MEQ/L (136-145); TOTAL PROTEIN 7.5 GM/DL (6.4-8.2); TRIGLYCERIDES LEVEL 84 MG/DL (<150)
== END ==
LOC: M LAB 07:20
PROVIDERS: ATTEND Family Medicine
DX: Z13.1 Encounter for screening for diabetes mellitus (principal); Z13.220 Encounter for screening for lipoid disorders

== ENCOUNTER 2023-01-22 11:15 | Emergency (ER) | payer OTHER ==
[~2023-01-22] VITALS: Ht 165.1 cm; Wt 67.2 kg
[2023-01-22] MEDS ORDERED: FLUO-96 PO (11:30)
[2023-01-22] MEDS ORDERED: ATOM40CA2 PO (11:30)
[2023-01-22] MEDS ORDERED: LIDOCAINE 2% W/EPINEPHRINE 20ML VIAL **PRES FREE INJ ONE (12:20)
[2023-01-22 13:37] VITALS: BP 124/75
== END 2023-01-22 13:43 | disposition home or self-care (01) ==
LOC: M ED 11:15
DX: S91.012A Laceration without foreign body, left ankle, initial encounter (principal); W26.8XXA Contact with other sharp object(s), not elsewhere classified, initial encounter; Y92.009 Unspecified place in unspecified non-institutional (private) residence as the place of occurrence of the external cause; Y93.E5 Activity, floor mopping and cleaning; Y99.8 Other external cause status

== ENCOUNTER → 2023-10-15 | Outpatient (CLI) | payer OTHER ==
[~2023-10-15] MED LIST: ATOM40CA2 PO; FLUO-96 PO
== END ==
LOC: M RAD 09:04
PROVIDERS: ATTEND Physician Assistant
DX: K43.9 Ventral hernia without obstruction or gangrene (principal); R19.06 Epigastric swelling, mass or lump

== ENCOUNTER → 2023-12-23 | Outpatient (CLI) | payer OTHER ==
[~2023-12-23] MED LIST changes: +GASTROGRAFIN SOLUTION 30ML As Ordered ONE; +ISOVUE-370 76% 100ML VIAL As Ordered ONE
== END ==
LOC: M RAD 09:43
PROVIDERS: ATTEND Surgery
DX: K43.9 Ventral hernia without obstruction or gangrene (principal)
CPT/HCPCS: 74177; Q9963; Q9967

== ENCOUNTER 2024-05-06 13:34 | Emergency (ER) | payer OTHER, SELFPAY ==
[~2024-05-06] VITALS: Ht 165.1 cm; Wt 59.7 kg
[~2024-05-06 13:34] MED LIST changes: -GASTROGRAFIN SOLUTION 30ML As Ordered ONE; -ISOVUE-370 76% 100ML VIAL As Ordered ONE
[2024-05-06] MEDS: ACETAMINOPHEN 500 MG TAB PO ONE (16:14)
[2024-05-06] MEDS: LevoFLOXacin 750 MG TABLET PO ONE (16:15)
[2024-05-06] MEDS: predniSONE 20 MG TAB PO ONE (16:15)
[2024-05-06 17:25] VITALS: TEMP 100.3
[2024-05-06] MEDS ORDERED: LEVO1TAB40 PO (17:37)
[2024-05-06] MEDS ORDERED: PRED20TA PO (17:37)
[2024-05-06 17:41] VITALS: BP 99/62; O2SAT 99
== END 2024-05-06 17:45 | disposition home or self-care (01) ==
LOC: M ED 13:34
DX: J18.9 Pneumonia, unspecified organism (principal); F90.9 Attention-deficit hyperactivity disorder, unspecified type; F32.A Depression, unspecified; F10.10 Alcohol abuse, uncomplicated; Z79.899 Other long term (current) drug therapy; Z79.52 Long term (current) use of systemic steroids
CPT/HCPCS: 71046; 87486; 87581; 87633; 87798; 99283; J7512

== ENCOUNTER → 2024-06-02 | Outpatient (CLI) | payer OTHER ==
[~2024-06-02] MED LIST changes: +LEVO1TAB40 PO; +PRED20TA PO
== END ==
LOC: M RAD 15:40
PROVIDERS: ATTEND Family Medicine
DX: J18.9 Pneumonia, unspecified organism (principal)

== ENCOUNTER → 2024-07-24 | Outpatient (RCR) | payer OTHER | LOC: M PT 07-03 11:07 | PROVIDERS: ATTEND Family Medicine | DX: N39.3 Stress incontinence (female) (male) (principal) ==

== ENCOUNTER 2025-10-03 17:54 | Emergency (ER) | payer OTHER ==
[~2025-10-03] VITALS: Ht 165.1 cm; Wt 62.0 kg
[2025-10-03] MEDS ORDERED: HYDR-3713 PO (20:51)
[2025-10-03] MEDS: KETOROLAC 60 MG/2 ML VIAL IM ONE (20:52)
[2025-10-03 21:03] VITALS: BP 110/68; TEMP 97.6; O2SAT 100
== END 2025-10-03 21:21 | disposition home or self-care (01) ==
LOC: M ED 17:54
DX: S70.11XA Contusion of right thigh, initial encounter (principal); Y92.9 Unspecified place or not applicable; Y93.9 Activity, unspecified; Y99.9 Unspecified external cause status; W20.8XXA Other cause of strike by thrown, projected or falling object, initial encounter; F32.A Depression, unspecified; Z79.1 Long term (current) use of non-steroidal anti-inflammatories (NSAID); Z79.899 Other long term (current) drug therapy
CPT/HCPCS: 73552; 73564; 96372; 99284; J1885